=== PATIENT | female | born 1950 | race Caucasian/White ===

== ENCOUNTER 2017-02-25 05:25 | Day surgery (SDC) | payer OTHER ==
[~2017-02-25] VITALS: Ht 160 cm; Wt 69.9 kg
[~2017-02-25 05:25] MED LIST: ASPIR 8181 M1 PO; INVOKAMET 150-1 EACH PO; LISINOPRIL20 MG PO; MEGARED OMEGA-1 EAC1 PO; SIMVASTATIN20 MG PO; TRULICITY1.5 MG/0.5 SC
[2017-02-25 06:31] LABS: EOSINOPHIL (%) 5.1 % (0-5); EOSINOPHIL COUNT 0.3 K/uL (0-0.3); IMMATURE GRANULOCYTE (%) 0.2 % (0.0-0.7); INSTRUMENT ABS NEUTROPHIL CT 2.7 K/uL; LYMPHOCYTE COUNT 3.1 K/uL (1.0-2.8); MCHC 31.1 G/DL (30.0-36.0); MCV 93.3 FL (83-99); MEAN PLAT.VOLUME 9.7 uM^3 (9.5-12.4); MONOCYTE COUNT 0.3 K/uL (0-0.8); NEUTROPHIL (%) 41.2 % (45-76); NEUTROPHIL COUNT 2.7 K/uL (1.8-6.4); PLATELET COUNT 224 K/uL (156-360); RBC DIS.WIDTH-SD 44.3 % (39-53); RED BLOOD COUNT 3.86 M/uL (3.80-5.20); WHITE BLOOD COUNT 6.4 K/uL (4.1-10.2)
[2017-02-25 06:53] LABS: ANION GAP 8 MEQ/L (2-14); CHLORIDE 102 MEQ/L (99-109); POTASSIUM 4.3 MEQ/L (3.7-5.4); SAMPLE HEMOLYSIS CHECK 0; SAMPLE ICTERIC CHECK 0; SAMPLE LIPEMIA CHECK 0; SODIUM 138 MEQ/L (136-147); TOTAL BILIRUBIN 0.4 MG/DL (0.0-1.0)
[2017-02-25 06:59] LABS: ALKALINE PHOSPHATASE 56 IU/L (3-129); GFR ESTIMATE (CALCULATED) > 59 mL/min/; GLUCOSE 117 mg/dL (70-99); UREA NITROGEN (BUN) 21 mg/dL (9-23)
[2017-02-25 07:19] VITALS: BP 118/69
[2017-02-25 07:38] LABS: POINT-OF-CARE METER ID UU14174212
[2017-02-25 08:46] LABS: POINT-OF-CARE METER ID UU13113675
[2017-02-25 08:55] VITALS: BP 138/64
[2017-02-25 09:42] VITALS: BP 134/66
== END 2017-02-25 09:47 | disposition home or self-care (01) ==
LOC: SDC 05:25
PROVIDERS: Internal Medicine
DX: H43.12 Vitreous hemorrhage, left eye (principal); I10 Essential (primary) hypertension; E11.319 Type 2 diabetes mellitus with unspecified diabetic retinopathy without macular edema; E78.5 Hyperlipidemia, unspecified; E66.9 Obesity, unspecified; Z68.28 Body mass index [BMI] 28.0-28.9, adult
CPT/HCPCS: 80053; 82948; 85025; J0690; J2250; J3300